=== PATIENT | female | born 1940 | race Caucasian/White ===

== ENCOUNTER 2021-11-13 12:24 | Outpatient (REF) | payer MEDICARE, SELFPAY | END 2021-11-13 12:25 | disposition home or self-care (01) | LOC: HO.LNP 12:24 | PROVIDERS: Visit Provider Otolaryngology | DX: B37.0 Candidal stomatitis (principal); B48.8 Other specified mycoses | CPT/HCPCS: 87071; 87102; 87106; 87205 ==

== ENCOUNTER 2021-12-24 13:01 | Emergency (ER) | payer MEDICARE, SELFPAY ==
[2021-12-24 13:45] VITALS: BP 198/91; PULSE 60; RESP 18; TEMP 36.9; O2SAT 96; BMI 18.4
--- NOTE | 2021-12-24 15:40 | ED.WOUNDLAC ---
HPI - Wound/Laceration General Chief Complaint: Wound/Laceration Stated Complaint: l davis laceration Time Seen by Provider: 12/24/21 15:40 History of Present Illness HPI narrative: Patient complains of left lower leg skin tear when a shelf fell on to her leg, there is no numbness no weakness no tingling no difficulty walking no other injury, she is on Coumadin and her INR was checked today and it is 5 and her doctor is aware she has no bleeding from any other site Review of Systems Review of Systems: No headache no neck pain no back pain no numbness no weakness no tingling no bleeding from any other site Yes all other systems are reviewed and are negative PMFSH Past Medical History Source: nursing notes reviewed Social History Social History Advance Directives: Yes Advance Directives Information Provided: Yes Advance Directives on File: No Physical Exam Vital Signs: Vital Signs: Last Vital Signs Temp 98.4 F 12/24/21 13:45 Pulse 60 12/24/21 13:45 Resp 18 12/24/21 13:45 BP 198/91 H 12/24/21 13:45 Pulse Ox 96 12/24/21 13:45 BMI result Body Mass Index 18.4 General appearance is no acute distress, cheerful cooperative The head is normocephalic atraumatic Neck is supple Respiratory no distress Extremities full range of motion x4 Left anterior leg has all large anterior skin tear about 4 cm x 3 cm, skin is present there is very mild oozing of blood but no heavy bleeding, she has full range of motion ankle and knee can bear weight on it and is neurovascular intact distal Course Course Course Narrative: The wound was cleansed with normal saline and when dry using a tweezer the skin at the base of the wound was stretched for as much coverage as possible and strep down with Steri-Strips, sterile dressing was applied, there was no significant bleeding and patient was discharged Patient was up-to-date on tetanus immunization Discharge Plan Discharge Clinical Impression: Skin tear of left lower leg without complication Patient Disposition: Home, Self-Care Additional Instructions: Change the dressing whenever wet Wait for skin to be totally dry before re-applying new dressing If tape does not fall off removed in 10-14 days Return any time for redness swelling any sign of infection
== END 2021-12-24 15:52 | disposition home or self-care (01) ==
PROVIDERS: Emergency Provider Emergency Medicine; PCP Internal Medicine
DX: S81.812A Laceration without foreign body, left lower leg, initial encounter (principal); W20.8XXA Other cause of strike by thrown, projected or falling object, initial encounter; Y93.9 Activity, unspecified; Y92.9 Unspecified place or not applicable; Y99.9 Unspecified external cause status
CPT/HCPCS: 99283

== ENCOUNTER 2023-08-08 11:01 | Outpatient (AMB) | payer MEDICARE, SELFPAY ==
--- NOTE | 2023-08-08 11:17 | A.SPINEOV_ITS ---
Intake Intake Visit Reasons: Low back pain Intake Note: Ms. Yeung is here today c/o low back pain. MRI done @ [facility]. Blow Molding Machine Operator Required: No Assessment & Plan Assessment & Plan (1) Lumbar radiculopathy: Code(s): M54.16 - Radiculopathy, lumbar region Plan Dear colleague, Thank you for referring Phuong to our office today. She is a pleasant 83-year-old female who comes in today with a chief complaint of chronic back pain for the last 30 years. She reports that she had a recent exacerbation 7 months ago when bending over to complete a jigsaw puzzle. She states that she felt a sharp pain in her low back on the left side. When describing the radiation of pain she runs her hand down the lateral side of her her left buttocks, through her left posterior thigh & knee, and stops alf down her left gastrocnemius. She states that this is where the shooting pains stop. She states that this pain has waxed and waned since onset but has not subsided. She reports that this pain is worse with bending over, sitting for prolonged periods of time, and when rising from a seated position. Of note she has confounding factors of her recent rectal surgery to remove 12 inches of her intestines due to a prolapsed rectum. She states that since the surgery (which was 2 weeks ago) she has had a significant increase in diffuse low back complaints including right-sided leg pain, right-sided shoulder pain, mid-back pain, and pains near her bilateral ankles. She also endorses pain in her bilateral knees when at tempting to descend stairs since this recent rectal surgery. PMH: Hypertension, chronic anticoagulation with Coumadin, osteoarthritis. Social hx: Patient does not smoke, reports no substance use. Medications: Coumadin, metoprolol, Tylenol. Allergies: NKDA. Physical exam: The patient has 5/5 strength in her upper and lower extremities. She reports some sensational deficit on her posterior thigh under the back side of her knees. The rest of her sensation is intact. Her reflexes are 2+ and intact. (+) straight leg raise on the left side. (-) Garland's, (-) clonus. Imaging review: MRI completed at [facility] shows diffuse spondylosis of the lumbar spine. Moderate degenerative disc disease is also seen diffusely throughout the lumbar spine. Posterior disc bulge noted at L5-S1 causing moderate central canal stenosis moderate-severe left-sided foraminal stenosis. Impression: Phuong is a pleasant 83-year-old female who comes in today with a chief complaint of chronic low back pain that was exacerbated 7 months ago after attempting to bend over to complete a jigsaw puzzle. She reports a shooting radicular pain began down her left side, which she describes in a classic S1 dermatomal distribution. Unfortunately Phuong has confounding factors which cause surgical decision-making to be rather difficult. She has a history of recent rectal surgery, and reports diffuse back and leg symptoms post- operatively. The surgery only took place 2 weeks ago, and it is hard to tell if her symptoms are being exacerbated as a result of the pain she is in from the surgery. She also was unsure as to why she is on chronic warfarin. I would like to review this case with Dr. Red, who will need to make the final decision as to whether or not she meets criteria for surgery. Phuong and I discussed the possibility of a L sided L5-S1 microdiskectomy to resolve her L sided radiular pain down the back of her left leg. Again this will need to be approved by Dr. Red after review. I will call Phuong next week after we discuss this case. Thank you for allowing us to care for your patient. The total time spent with this visit with this patient was 45 minutes reviewing history, physical exam, MRI imaging review, and implementation of treatment plan or further diagnostic testing Satya Red MD,PhD [facility] Coding Level of Care Code Global (48099) Diagnoses Lumbar radiculopathy M54.16
== END 2023-08-08 12:26 | disposition home or self-care (01) ==
PROVIDERS: PCP Internal Medicine; Visit Provider Physician Assistant
DX: M54.16 Radiculopathy, lumbar region (principal)
CPT/HCPCS: 99204

== ENCOUNTER → 2023-08-08 11:01 | Outpatient (BNVA) | payer MEDICARE, SELFPAY | PROVIDERS: PCP Internal Medicine; Visit Provider Physician Assistant | DX: M54.16 Radiculopathy, lumbar region (principal) | CPT/HCPCS: 99202 ==

== ENCOUNTER 2023-08-15 09:07 | Outpatient (REF) | payer MEDICARE, SELFPAY | END 2023-08-15 09:08 | disposition home or self-care (01) | LOC: HO.HOSX 09:07 | PROVIDERS: Visit Provider Physician Assistant | DX: Z13.89 Encounter for screening for other disorder (principal) ==

== ENCOUNTER 2023-08-20 09:07 | Outpatient (REF) | payer MEDICARE, SELFPAY ==
--- NOTE | ~2023-08-20 | XR_ITS ---
EXAMINATION: XR LUMBOSACRAL SPINE WITH FLEXION AND EXTENSION CLINICAL INFORMATION: Lumbar radiculopathy. COMPARISON: None available. TECHNIQUE: AP and lateral (neutral, flexion and extension) views of the lumbosacral spine are submitted. FINDINGS: There is bony demineralization. There is a moderately severe thoracolumbar levoscoliosis. There is multi-level thoracolumbar degenerative disc disease, spondylosis and facet arthropathy. Degenerative disc disease particularly pronounced at L3-L4 through L5-S1. No acute fracture or spondylolisthesis is seen. There is no instability with flexion or extension. The posterior elements are intact. There are aortoiliac atherosclerotic calcifications. XR/XR lumbar spine 4V min IMPRESSION: 1. There is a moderately severe thoracolumbar levoscoliosis. 2. There is multi-level thoracolumbar degenerative disc disease, spondylosis and facet arthropathy. Degenerative disc disease is most pronounced extending from L3-L4 through L5-S1. 3. There is no instability with flexion or extension.
== END 2023-08-20 09:08 | disposition home or self-care (01) ==
LOC: HO.HOSX 09:07
PROVIDERS: Visit Provider Physician Assistant
DX: M54.16 Radiculopathy, lumbar region (principal)
CPT/HCPCS: 72110

== ENCOUNTER → 2023-11-27 07:17 | Day surgery (SDC) | payer MEDICARE, SELFPAY ==
[2023-11-13 12:46] VITALS: BMI 23.4
[2023-11-13 12:58] VITALS: BP 136/64; PULSE 62; RESP 16; O2SAT 94
--- NOTE | 2023-11-13 13:08 | HO.ANESPROP2 ---
HPI - Anesthesia Eval Consult details Narrative: Cx'd by surgeon DOS d/t change in symptoms. 83yo F for Left L5-S1 MicroLumbar discectomy Cardiac cleared Medically cleared for rectal surgery 07/2023 No recent illness. Seasonal allergies No CP/SOB with walking store with cart Coumadin for afib Pacer in situ [facility] smoker, quit 02/2023. COPD. Chronic respiratory failure. Resistant to recommended O2, but will use on rare occasion. Albuterol a couple times a week . CXR obtained at [facility] grossly unchanged from 11/2022 CXR from outside facility. Reviewed with Dr Sanders. OK for eval DOS. GERD. PRN Tums Remote hx PONV. N/V with epidural 2022 rectal surgery. None with subsequent GA. Pt vague historian regarding previous surgeries and possible versed allergy: States first 2022 rectal surgery, anesthesia refused general (need pulmo clearance prior for review), ? spinal with 5 x vomiting. Subsequent surgery was ? general. Reports allergic reaction to med to help calm restless leg. ? ativan After record review: 02/2023 Rectal surgery under epidural 07/2023 Rectal surgery with uneventful GA (notes emesis with last neuraxial block). No mention of allergic reaction during PMFSH Active Problems Active Problems: All Active Problems Lumbar radiculopathy (Acute) Past Medical History Medical History (Updated 11/25/23 @ 15:17 by Nadia Wright NP) Rectal prolapse Spinal stenosis GERD (gastroesophageal reflux disease) Former smoker Depression Anxiety On supplemental oxygen therapy Bronchiolectasis Chronic hypoxemic respiratory failure COPD (chronic obstructive pulmonary disease) PAF (paroxysmal atrial fibrillation) Cardiac pacemaker HTN (hypertension) Family History Family history of problems with anesthesia: No Surgical History Surgical History (Updated 11/13/23 @ 16:48 by Audrey Alex, PRASAD) Hx of cervical spine surgery History of rectal surgery (~07/2023) History of Problems with Anesthesia: Yes (Remote hx PONV. N/V with epidural 2022 rectal surgery. None with subsequent GA. ) Social History Social History (Updated 11/12/23 @ 16:36 by Audrey Alex, RN) Are you a primary long term care social worker to a significant other at home: No Do you presently have visiting nurse or other home services: No Comment: aware of trip hazard. uses carriage while shopping for support. Patient Tobacco Use Status: Former Tobacco user Quit Date: 02/2023 Tobacco use type: Cigarette Years Smoked: 55 Meds Allergies Allergy/AdvReac Type Severity Reaction Status Date / Time lorazepam [From Ativan] Allergy Unknown Verified 11/13/23 16:33 pain meds AdvReac Severe Nausea and Uncoded 11/13/23 14:05 Vomiting Home Medications ?Medication ?Instructions ?Recorded ?Confirmed ?Last Taken ?Type acetaminophen 500 mg tablet 1,000 mg PO Q6H PRN Pain 11/12/23 11/12/23 Unknown History albuterol sulfate 90 mcg/actuation 2 puff inhalation QID PRN wheezing 11/12/23 11/12/23 Unknown History aerosol inhaler losartan 25 mg tablet 25 mg PO DAILY 11/12/23 11/12/23 Unknown History metoprolol tartrate 25 mg tablet 37.5 mg PO BID 11/12/23 11/12/23 Unknown History warfarin 5 mg tablet 5 mg PO DAILY 11/12/23 11/12/23 Unknown History Exam Height,Weight and Vital Signs: Height 5 ft 2.5 in Weight 58.967 kg Last Vital Signs Pulse 62 11/13/23 12:58 Resp 16 11/13/23 12:58 BP 136/64 11/13/23 12:58 Pulse Ox 94 11/13/23 12:58 O2 Del Method Room Air 11/13/23 12:58 Pertinent Lab Results Pertinent Lab Results: Lab Results 11/13/23 Range/Units 14:33 WBC 9.0 (4.8-10.8) X10*3/uL RBC 5.07 (4.20-5.50) X10*6/uL Hgb 14.3 (12.0-16.0) g/dl Hct 44.7 (37.0-47.0) % MCV 88.2 (80.0-98.0) fL MCH 28.2 (27.0-33.0) pg MCHC 32.0 (31.0-35.0) g/dl RDW 14.3 (11.0-16.0) % Plt Count 293 (160-400) X10*3/uL MPV 8.9 L (9.4-12.3) fL Absolute Nucleated RBC 0.000 (0.0-0.012) X10*3/uL Nucleated RBC % (auto) 0.0 (0.0-0.2) /100WBC Sodium 139 (135-145) mmol/L Potassium 4.3 (3.3-5.1) mmol/L Chloride 106 (96-108) mmol/L Carbon Dioxide 27 (22-29) mmol/L Anion Gap 10 L (12-20) BUN 10 (9-16) mg/dL Creatinine 1.04 (0.5-1.4) mg/dL Estim Creat Clear Calc 33.5 Estimated GFR 51 Random Glucose 81 (60-115) mg/dL Calcium 9.4 (8.4-10.2) mg/dL Narrative Narrative: EKG 06/2023 AV paced @ 60 Pacer interrogation 09/2023 [facility] Dual Pacer DDD 60-130 bpm, AP 51% and ALODIZE MACHINE HELPER >99% Nml device function Battery ~ 4.6 years XR chest 2V 11/2023 IMPRESSION: Patchy and linear opacities at the left lung base with associated volume loss may represent atelectasis, although an inflammatory/infectious process should also be considered in the appropriate clinical setting. Left costophrenic angle blunting may represent trace pleural effusion or pleural thickening. Correlation with clinical exam recommended to determine further management including possible additional imaging with CT scan of the chest and/or follow up radiographs in 4-6 weeks to confirm resolution. ECHO 11/2022 (per cardiac note) LVEF 60-65% Mild conc LVH Mild dilated LA and RA 2+ MR 1+ TR PASP elevated at 62mmHg c/w 2021 study, MR has worsened Airway Mallampati Class: II TM Dist: >3cm Neck ROM: Limited (s/p cspine surgery) Heart: RRR Lungs: Expiratory wheeze throughout Assessment and Plan Assessment Anesthesia Assessment: Anesthesia Plan Discussed and PAT Visit Final Anesthetic Review Family History of Problems with Anesthesia: No History of Problems with Anesthesia: Yes (Remote hx PONV. N/V with epidural 2022 rectal surgery. None with subsequent GA. )
[2023-11-13 14:53] LABS: Hematocrit 44.7 % (37.0-47.0); Hemoglobin 14.3 g/dl (12.0-16.0); Mean Corpuscular Hemoglobin 28.2 pg (27.0-33.0); Mean Corpuscular Volume 88.2 fL (80.0-98.0); Mean Platelet Volume 8.9 fL (9.4-12.3); Platelet Count 293 X10*3/uL (160-400); Red Blood Count 5.07 X10*6/uL (4.20-5.50); Red Cell Distribution Width 14.3 % (11.0-16.0)
[2023-11-13 15:46] LABS: Anion Gap 10 (12-20); Blood Urea Nitrogen 10 mg/dL (9-16); Calcium 9.4 mg/dL (8.4-10.2); Carbon Dioxide 27 mmol/L (22-29); Chloride 106 mmol/L (96-108); Creatinine Clr Calc Pharmacy 33.5; Estimated Glomerular Filt Rate 51; Glucose Random 81 mg/dL (60-115); Potassium 4.3 mmol/L (3.3-5.1); Sodium 139 mmol/L (135-145)
--- NOTE | ~2023-11-27 | XR_ITS ---
EXAMINATION: XR CHEST CLINICAL INFORMATION: COPD. COMPARISON: None available. TECHNIQUE: 2 views of the chest were obtained. FINDINGS: Degenerative changes in the thoracic spine. Left subclavian pacer with leads projecting over expected locations of right atrium and right ventricle. Borderline enlargement of the cardiac silhouette. S-shaped thoracolumbar scoliosis with multilevel degenerative changes. Mild asymmetric right apical pleural thickening. Patchy and linear opacities at the left lung base with associated volume loss may represent atelectasis, although an inflammatory/infectious process should also be considered in the appropriate clinical setting. Left costophrenic angle blunting may represent trace pleural effusion or pleural thickening. Triangular density projects over the upper anterior mediastinum on the lateral view, difficult to confirm with the frontal view, of uncertain etiology. XR/XR chest 2V IMPRESSION: Patchy and linear opacities at the left lung base with associated volume loss may represent atelectasis, although an inflammatory/infectious process should also be considered in the appropriate clinical setting. Left costophrenic angle blunting may represent trace pleural effusion or pleural thickening. Correlation with clinical exam recommended to determine further management including possible additional imaging with CT scan of the chest and/or follow up radiographs in 4-6 weeks to confirm resolution. This study was presented today November 24, 2023 for interpretation. PSA staff will provide results to referring provider at this time.
--- NOTE | 2023-11-27 07:02 | MHC.SHP ---
Pre-Procedural Eval Section A - 24 Hr Update-Section A only Date of Service: 11/27/23 The patient is an INPATIENT: No Changes since office visit: No Cold of Flu in the past 2 weeks, No New Medical Problems, No Changes in Medication and No Patient answered all questions The patient has been examined within 24 hours of the surgical procedure. The History & Physical has been completed within 30 days and I have reviewed it.: No Section B - Complete if H&P > 30 days Chief Complaint: Radiculopathy, lumbar region Allergies: Allergies Allergy/AdvReac Type Severity Reaction Status Date / Time lorazepam [From Ativan] Allergy Unknown Verified 11/13/23 16:33 pain meds AdvReac Severe Nausea and Uncoded 11/13/23 14:05 Vomiting Review of Systems Sugical H&P ROS: Negative: Constitution, Cardiovascular, Respiratory, Neurological, Psychiatric, Hem-Onc, Allergic/Immunologic, Gastrointestinal, Genitourinary, Musculoskeletal, Integumentary, Endocrine and Eyes/Ears/Nose/Throat Exam Surgical H&P Exam: Not Evaluated: HEENT, Not Evaluated: Heart, Not Evaluated: Lungs, Not Evaluated: Extremities, Not Evaluated: Abdomen, Not Evaluated: Skin and Not Evaluated: Neurological Plan Diagnosis/Plan: Unchanged left L5-S1 microdiskectomy Time Spent With Patient Time: Total time managing care of this patient today _6___ minutes.
--- NOTE | 2023-11-27 07:50 | PC.NURSE ---
see doctor pennings note regarding cancellation it is written on back of preop record.
--- NOTE | 2023-11-27 07:51 | PC.NURSE ---
patient was only brought into [facility]. no evaluation was completed due to dr. romero meeting with patient. daughter aware and will arrive to pick her up.
== END ==
PROVIDERS: Nurse Practitioner; PCP Internal Medicine; Visit Provider Neurological Surgery
DX: M54.16 Radiculopathy, lumbar region (principal); Z53.8 Procedure and treatment not carried out for other reasons; J44.9 Chronic obstructive pulmonary disease, unspecified
CPT/HCPCS: 36415; 71046; 80048; 85027

== ENCOUNTER 2023-12-02 14:53 | Outpatient (AMB) | payer MEDICARE, SELFPAY ==
--- NOTE | 2023-12-02 14:58 | A.SPINEOV_ITS ---
Intake Visit Reasons: Discuss Surgery Intake Note: Ms. Yeung is here to Discuss Surgery Test Center Administrator Required: No Allergies lorazepam [From Ativan] Allergy (Verified 11/13/23 16:33) Unknown pain meds Adverse Reaction (Severe, Uncoded 11/13/23 14:05) Nausea and Vomiting Assessment & Plan Assessment & Plan (1) Lumbar radiculopathy: Code(s): M54.16 - Radiculopathy, lumbar region Category: Medical (2) Lumbar spinal stenosis: Code(s): M48.061 - Spinal stenosis, lumbar region without neurogenic claudication Category: Medical Qualifiers: Neurogenic claudication status: without neurogenic claudication Qualified Code(s): M48.061 - Spinal stenosis, lumbar region without neurogenic claudication Plan Dear colleague, On 12/02/2023 I saw for follow-up Phuong Yeung. This 83-year-old female was scheduled to undergo a left microdiskectomy on November 27, 2023. Preoperatively, the patient stated that she has pain in both legs were actually the right side is more affected than the left side, which is a different story then we obtained during her clinic visit. I canceled the surgery. Today I am seeing her for a follow-up to go over history. She states that she has a longstanding history of right-sided back pain for which she visited brian Santos, ordered an MRI of the lumbar spine. She denies pain down her legs at that time. Currently she has having a constant pain on the medial side of her right leg and left buttock area. The pain is worse at night in bed. She denies weakness or numbness. There is no association with walking or standing. Initially, she told me there was a relationship between surgery for a rectal prolapse and the development of symptoms but on further questioning she states that the leg symptoms started many months after the procedure. On exam: There is hyperreflexia of the lower extremities with the 1 beat of clonus on her ankles. No motor or sensory deficits. Upper extremities show no abnormalities. In summary, this patient is suffering from longstanding right-sided back pain and more recently bilateral leg symptoms of unexplained origin. The MRI of the lumbar spine was done prior to her leg symptoms and therefore I think it is indicated to repeat the MRI of the lumbar spine. She will follow up with me after the MRI is done. I spent more than 40 minutes in this consult for preparation and discussing plan of care with the patient and her son. Sergio Red MD, PhD Spine Fellowship Trained Neurosurgeon Director, [facility] Orders: Orders MR lumbar spine wo con Today M48.061 - Spinal stenosis, lumbar region without neurogenic claudication, M54.16 - Radiculopathy, lumbar region Coding Level of Care Code Est Pt Level 5 (92562) Diagnoses Lumbar radiculopathy M54.16 Spinal stenosis of lumbar region without neurogenic claudication M48.061 Neurogenic claudication status: without neurogenic claudication
== END 2023-12-02 16:19 | disposition home or self-care (01) ==
PROVIDERS: PCP Internal Medicine; Visit Provider Neurological Surgery
DX: M54.16 Radiculopathy, lumbar region (principal); M48.061 Spinal stenosis, lumbar region without neurogenic claudication
CPT/HCPCS: 99215

== ENCOUNTER → 2023-12-02 14:53 | Outpatient (BNVA) | payer MEDICARE, SELFPAY | PROVIDERS: PCP Internal Medicine; Visit Provider Neurological Surgery | DX: M54.16 Radiculopathy, lumbar region (principal); M48.061 Spinal stenosis, lumbar region without neurogenic claudication | CPT/HCPCS: 99212 ==

== ENCOUNTER 2023-12-26 14:23 | Outpatient (AMB) | payer MEDICARE, SELFPAY ==
--- NOTE | 2023-12-26 14:32 | A.SPINEOV_ITS ---
Intake Visit Reasons: discuss MRI Intake Note: Ms. Yeung is here today to Discuss MRI. Brand Communications Manager Required: No Allergies lorazepam [From Ativan] Allergy (Verified 11/13/23 16:33) Unknown pain meds Adverse Reaction (Severe, Uncoded 11/13/23 14:05) Nausea and Vomiting Coding
--- NOTE | 2023-12-26 15:09 | A.SPINEOV_ITS ---
Intake Visit Reasons: discuss MRI Allergies lorazepam [From Ativan] Allergy (Verified 11/13/23 16:33) Unknown pain meds Adverse Reaction (Severe, Uncoded 11/13/23 14:05) Nausea and Vomiting Assessment & Plan Assessment & Plan (1) Scoliosis of lumbar region due to degenerative disease of spine in adult: Code(s): M41.56 - Other secondary scoliosis, lumbar region Category: Medical Plan On 12/26/2023 I saw for follow-up Phuong Yeung to discuss her MRI reports. She was suffering from severe right-sided back pain radiating down both legs independent of walking or standing. The MRI shows lumbar degenerative scoliosis and spinal stenosis and is unchanged from her last MRI. The good news is that she received an injection in her left shoulder which also to care of her back and leg problems for now. This tells us that the spinal pathology is related to arthritis. I advised her to call the office of with the symptoms returned to schedule an lumbar epidural steroid injection. I do not think there is a role for surgery. Thank you for allowing me take care of your patient. 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
== END 2023-12-26 15:12 | disposition home or self-care (01) ==
PROVIDERS: PCP Internal Medicine; Visit Provider Neurological Surgery
DX: M41.56 Other secondary scoliosis, lumbar region (principal)
CPT/HCPCS: 99212

== ENCOUNTER → 2023-12-26 14:23 | Outpatient (BNVA) | payer MEDICARE, SELFPAY | PROVIDERS: PCP Internal Medicine; Visit Provider Neurological Surgery | DX: M54.9 Dorsalgia, unspecified (principal); M41.56 Other secondary scoliosis, lumbar region | CPT/HCPCS: 99212 ==